=== PATIENT | female | born 1985 | race Caucasian/White ===

== ENCOUNTER 2020-04-02 20:51 | Inpatient (IN) | payer MEDICAID ==
[~2020-04-02] VITALS: Ht 167.6 cm; Wt 81.8 kg
[~2020-04-02 20:51] MED LIST: IBUP-1223 PO; OXYC-302 PO; PREN1TAB60 PO
[2020-04-02 21:11] VITALS: BP 127/70
[2020-04-02] MEDS ORDERED: METOCLOPRAMIDE 5 MG/ML, 2ML IV ONE (21:30)
[2020-04-02] MEDS ORDERED: LACTATED RINGERS 1,000 ML IVBOLUS ONE (21:30)
[2020-04-02] MEDS ORDERED: SODIUM CITRATE/CITRIC ACID 30 ML UDC PO ONE (21:30)
[2020-04-02] MEDS ORDERED: CEFAZOLIN PMX 1GM/50ML 50 ML IVPB ONE (21:30)
[2020-04-02] MEDS ORDERED: NEWBORN KIT ONE (21:35)
[2020-04-02] MEDS ORDERED: OXYTOCIN 30U/ 0.9% NaCL 500ML 500 ML ONE (21:36)
[2020-04-02] MEDS ORDERED: METOCLOPRAMIDE 5 MG/ML, 2ML ONE (21:36)
[2020-04-02] MEDS ORDERED: EPHEDRINE 50 MG/ML, 1ML IVPush PRN (22:00)
[2020-04-02] MEDS ORDERED: HYDROcodone/APAP 7.5-325MG/15ML UDC PO PRN (22:00)
[2020-04-02] MEDS ORDERED: ALBUTEROL SULFATE 2.5 MG/3 ML NPPB PRN (22:00)
[2020-04-02] MEDS ORDERED: METOPROLOL 1 MG/ML, 5ML IV PRN (22:00)
[2020-04-02] MEDS ORDERED: ONDANSETRON 2MG/ML, 2ML IVPush PRN (22:00)
[2020-04-02] MEDS ORDERED: MIDAZOLAM 1 MG/ML, 2ML IV PRN (22:00)
[2020-04-02] MEDS ORDERED: PROMETHAZINE 25 MG/ML, 1ML IV PRN (22:00)
[2020-04-02] MEDS ORDERED: FENTANYL PF 100 MCG/2ML IV PRN (22:00)
[2020-04-02] MEDS ORDERED: hydrALAzine 20 MG/ML, 1ML IV PRN (22:00)
[2020-04-02] MEDS ORDERED: HYDROmorphone 2 MG/ML, 1ML IVPush PRN (22:00)
[2020-04-02] MEDS ORDERED: OXYcodone 5 MG/5 ML ORAL.SOL UDC PO PRN (22:00)
[2020-04-02] MEDS ORDERED: LABETALOL 5MG/ML, 20ML IV PRN (22:00)
[2020-04-02] MEDS ORDERED: KETOROLAC 30 MG/1 ML ONE (22:06)
[2020-04-02] MEDS ORDERED: DEXAMETHASONE 4 MG/ML, 1ML ONE (22:06)
[2020-04-02] MEDS ORDERED: ONDANSETRON 2MG/ML, 2ML ONE (22:06)
[2020-04-02] MEDS ORDERED: OXYTOCIN 10 UNITS/ML, 1ML ONE (22:06)
[2020-04-02] MEDS ORDERED: PHENYLEPHRINE 10 MG/ML ONE (22:06)
[2020-04-02] MEDS ORDERED: CEFAZOLIN 1,000 MG ONE (22:06)
[2020-04-02] MEDS ORDERED: EPHEDRINE 50 MG/ML, 1ML ONE (22:06)
[2020-04-02] MEDS ORDERED: FENTANYL PF 100 MCG/2ML ONE (22:06)
[2020-04-02] MEDS ORDERED: HYDROmorphone 2 MG/ML, 1ML ONE (22:07)
[2020-04-02 22:09] LABS: MEAN CORPUSCULAR HEMOGLOBIN 29.5 pg (27.0-34.8); MEAN CORPUSCULAR HGB CONC 32.4 g/dL (32.4-35.8); MEAN CORPUSCULAR VOLUME 90.8 fL (80-100); MEAN PLATELET VOLUME 9.5 fL (7.4-10.4); PLATELET COUNT 225 x10^3/uL (130-400); RED BLOOD COUNT 3.78 x10^6/uL (3.82-5.3); RED CELL DISTRIBUTION WIDTH 14.3 % (9.6-15.2)
[2020-04-02 22:31] LABS: BASOPHILS # (AUTO) 0.02 x10^3/uL (0-0.1); BASOPHILS % (AUTO) 0 % (0-1); EOSINOPHILS # (AUTO) 0.15 x10^3/uL (0-0.4); EOSINOPHILS % (AUTO) 1 % (1-7); LYMPHOCYTES # (AUTO) 1.96 x10^3/uL (1-3.4); LYMPHOCYTES % (AUTO) 9 % (22-44); MD SCAN; MONOCYTES # (AUTO) 0.65 x10^3/uL (0.2-0.8); MONOCYTES % (AUTO) 3 % (2-9); NEUTROPHILS # (AUTO) 18.38 x10^3/uL (1.8-6.8); NEUTROPHILS % (AUTO) 87 % (42-75)
[2020-04-02] MEDS ORDERED: MIDAZOLAM 1 MG/ML, 2ML ONE (22:53)
[2020-04-03] MEDS ORDERED: OXYcodone 5 MG/5 ML ORAL.SOL UDC ONE (00:57)
[2020-04-03] MEDS: LACTATED RINGERS 1,000 ML IV SCH ×6 (01:14→21:14)
[2020-04-03] MEDS: OXYTOCIN 30U/ 0.9% NaCL 500ML 500 ML IV SCH ×3 (01:14→21:14)
[2020-04-03] MEDS ORDERED: TRANEXAMIC ACID 100 MG/ML, 10ML IV ONE (01:30)
[2020-04-03] MEDS ORDERED: METHYLERGONOVINE 0.2 MG/ML IM PRN (01:30)
[2020-04-03] MEDS ORDERED: ONDANSETRON 2MG/ML, 2ML IV PRN (01:30)
[2020-04-03] MEDS ORDERED: CARBOPROST TROMETHAMINE 250 MCG/ML, 1ML IM PRN (01:30)
[2020-04-03] MEDS ORDERED: OXYcodone/APAP 5/325MG TABLET PO PRN (01:30)
[2020-04-03 02:00] VITALS: BP 123/75
[2020-04-03] MEDS: SIMETHICONE 80 MG CHEW TAB PO PRN ×3 (02:15→18:23)
[2020-04-03] MEDS ORDERED: morphine SULFATE 10 MG/ML, 1ML IVPush PRN (03:00)
[2020-04-03] MEDS: morphine SULFATE 10 MG/ML, 1ML IVPush PRN ×3 (03:01→19:52)
[2020-04-03 05:15] VITALS: BP 124/81
[2020-04-03] MEDS: IBUPROFEN 800 MG TABLET PO PRN ×3 (05:17→22:05)
[2020-04-03] MEDS: OXYcodone IR 5MG TABLET PO PRN ×5 (05:17→22:05)
[2020-04-03] MEDS: ACETAMINOPHEN 325 MG TABLET PO PRN ×4 (05:17→22:05)
[2020-04-03 07:36] LABS: MEAN CORPUSCULAR HEMOGLOBIN 29.1 pg (27.0-34.8); MEAN CORPUSCULAR HGB CONC 32.1 g/dL (32.4-35.8); MEAN CORPUSCULAR VOLUME 90.8 fL (80-100); MEAN PLATELET VOLUME 10.2 fL (7.4-10.4); PLATELET COUNT 134 x10^3/uL (130-400); RED BLOOD COUNT 3.05 x10^6/uL (3.82-5.3); RED CELL DISTRIBUTION WIDTH 14.8 % (9.6-15.2)
[2020-04-03 07:40] LABS: BASOPHILS # (AUTO) 0.01 x10^3/uL (0-0.1); BASOPHILS % (AUTO) 0 % (0-1); EOSINOPHILS # (AUTO) 0.01 x10^3/uL (0-0.4); EOSINOPHILS % (AUTO) 0 % (1-7); LYMPHOCYTES # (AUTO) 1.63 x10^3/uL (1-3.4); LYMPHOCYTES % (AUTO) 7 % (22-44); MD SCAN; MONOCYTES # (AUTO) 0.61 x10^3/uL (0.2-0.8); MONOCYTES % (AUTO) 3 % (2-9); NEUTROPHILS # (AUTO) 20.71 x10^3/uL (1.8-6.8); NEUTROPHILS % (AUTO) 90 % (42-75)
[2020-04-03 08:10] VITALS: BP 120/71
[2020-04-03] MEDS: PRENATAL VIT/IRON/FA 1 EACH TABLET PO SCH (09:53)
[2020-04-03] MEDS: DOCUSATE 100 MG CAPSULE PO PRN ×2 (09:53→20:01)
[2020-04-03] MEDS: NICOTINE 14MG/24 HR PATCH.TD24 TD SCH (09:54)
[2020-04-03 12:01] VITALS: BP 120/76
[2020-04-03 16:18] VITALS: BP 111/69
[2020-04-03 19:05] VITALS: BP 113/75
[2020-04-03] MEDS ORDERED: RHOGAM FROM BLOOD BANK 1 NOTE EA IM/IV ONE (20:00)
[2020-04-04] MEDS: LACTATED RINGERS 1,000 ML IV SCH ×5 (01:14→17:14)
[2020-04-04] MEDS: SIMETHICONE 80 MG CHEW TAB PO PRN ×3 (02:11→18:20)
[2020-04-04] MEDS: OXYcodone IR 5MG TABLET PO PRN ×6 (02:11→22:13)
[2020-04-04] MEDS: ACETAMINOPHEN 325 MG TABLET PO PRN ×5 (02:11→22:13)
[2020-04-04] MEDS: IBUPROFEN 800 MG TABLET PO PRN ×2 (06:02→22:13)
[2020-04-04] MEDS: OXYTOCIN 30U/ 0.9% NaCL 500ML 500 ML IV SCH ×2 (07:14→17:14)
[2020-04-04 08:05] VITALS: BP 118/76
[2020-04-04] MEDS: PRENATAL VIT/IRON/FA 1 EACH TABLET PO SCH (10:02)
[2020-04-04] MEDS: NICOTINE 14MG/24 HR PATCH.TD24 TD SCH (10:02)
[2020-04-04] MEDS: DOCUSATE 100 MG CAPSULE PO PRN ×2 (10:02→22:13)
[2020-04-04 19:30] VITALS: BP 117/74
[2020-04-05] MEDS: LACTATED RINGERS 1,000 ML IV SCH ×2 (01:14→03:14)
[2020-04-05] MEDS: ACETAMINOPHEN 325 MG TABLET PO PRN ×3 (02:38→10:15)
[2020-04-05] MEDS: OXYcodone IR 5MG TABLET PO PRN ×3 (02:38→10:15)
[2020-04-05] MEDS: SIMETHICONE 80 MG CHEW TAB PO PRN ×2 (02:39→10:15)
[2020-04-05] MEDS: OXYTOCIN 30U/ 0.9% NaCL 500ML 500 ML IV SCH (03:14)
[2020-04-05 06:02] LABS: BASOPHILS # (AUTO) 0.03 x10^3/uL (0-0.1); BASOPHILS % (AUTO) 0 % (0-1); EOSINOPHILS # (AUTO) 0.15 x10^3/uL (0-0.4); EOSINOPHILS % (AUTO) 2 % (1-7); LYMPHOCYTES % (AUTO) 22 % (22-44); MD NO; MEAN CORPUSCULAR HEMOGLOBIN 29.5 pg (27.0-34.8); MEAN CORPUSCULAR HGB CONC 32.5 g/dL (32.4-35.8); MEAN CORPUSCULAR VOLUME 90.8 fL (80-100); MEAN PLATELET VOLUME 9.6 fL (7.4-10.4); MONOCYTES # (AUTO) 0.59 x10^3/uL (0.2-0.8); MONOCYTES % (AUTO) 6 % (2-9); NEUTROPHILS # (AUTO) 6.92 x10^3/uL (1.8-6.8); NEUTROPHILS % (AUTO) 71 % (42-75); PLATELET COUNT 175 x10^3/uL (130-400); RED BLOOD COUNT 2.89 x10^6/uL (3.82-5.3); RED CELL DISTRIBUTION WIDTH 14.2 % (9.6-15.2)
[2020-04-05] MEDS: IBUPROFEN 800 MG TABLET PO PRN (06:06)
[2020-04-05 07:35] VITALS: BP 108/71
[2020-04-05] MEDS ORDERED: DOCU-131 PO (08:13)
[2020-04-05] MEDS ORDERED: OXYC-302 PO (08:14)
[2020-04-05] MEDS ORDERED: FERR325T5 PO (08:14)
[2020-04-05] MEDS ORDERED: IBUP-1222 PO (08:14)
[2020-04-05] MEDS: DOCUSATE 100 MG CAPSULE PO PRN (10:15)
[2020-04-05] MEDS: PRENATAL VIT/IRON/FA 1 EACH TABLET PO SCH (10:15)
[2020-04-05] MEDS: NICOTINE 14MG/24 HR PATCH.TD24 TD SCH (10:16)
== END 2020-04-05 12:22 | disposition home or self-care (01) | DRG 785 ==
LOC: LDOP 20:51 → LDIP 21:25 → 2NW 04-03 02:15
PROVIDERS: ADMIT Obstetrics & Gynecology; ATTEND Obstetrics & Gynecology
PROC: 10D00Z1 Extraction of Products of Conception, Low, Open Approach (ICD-10-PCS; principal; 2020-04-02)
PROC: 0UB70ZZ Excision of Bilateral Fallopian Tubes, Open Approach (ICD-10-PCS; 2020-04-02)
PROC: 3E0234Z Introduction of Serum, Toxoid and Vaccine into Muscle, Percutaneous Approach (ICD-10-PCS; 2020-04-03)
DX: O34.211 Maternal care for low transverse scar from previous cesarean delivery (principal); O77.0 Labor and delivery complicated by meconium in amniotic fluid; Z30.2 Encounter for sterilization; Z37.0 Single live birth; Z3A.38 38 weeks gestation of pregnancy
CPT/HCPCS: 36415; 85025; 85461; 86592; 86850; 86900; 87635; 88302; G0378; J0690; J1100; J1170; J1885; J2250; J2405; J2790; J3010; J2270; J2370; J2590; J2765; J7120